=== PATIENT | female | born 1950 | race Asian ===

== ENCOUNTER → 2021-03-06 08:50 | Outpatient (CLI) | payer MEDICARE, BC, SELFPAY ==
--- NOTE | 2021-03-06 | DI.MRI.S_ITS ---
PROCEDURE: MR HIP RT WO CON INDICATIONS: Pain in right hip TECHNIQUE: Noncontrast coronal T1 spin echo and STIR through the bony pelvis. Coronal and axial T2 fast spin echo with fat saturation, sagittal T1 spin echo, and oblique axial T2 fast spin echo with fat saturation through the hip. COMPARISON: None. FINDINGS: Bones and joints: No fracture identified. Sacroiliac joints are unremarkable in signal intensity. There is lower lumbar spondylosis and facet arthropathy. Large joint effusion. No evidence of osteonecrosis. Severe lumbar spondylosis and facet arthropathy. There is partially visualized dextroscoliosis of the lumbar spine. Severe right hip joint degeneration with full-thickness cartilage loss and prominent subchondral cystic change and marrow edema. Tendons and ligaments: Mild gluteus medius and minimus insertional tendinopathy. Proximal iliotibial band intact. Diffuse mild iliopsoas tendinopathy. Age-indeterminate hamstring origin tendinopathy and partial tear. There is high-grade intrasubstance signal change and adjacent soft tissue edema involving the straight and reflected tends of the rectus femoris origin. This may include complete rupture of the straight head. Ligamentum teres appears intact where visualized. Labrum: Ill-defined circumferential labral degeneration. The alpha angle of the femur is within normal limits at less than 55 degrees. Soft tissues: Visualized muscles demonstrate normal bulk and internal signal. Quadratus femoris muscle normal. Proximal sciatic neurovascular bundle appears normal adjacent to the hamstring tendons. No free pelvic fluid. Bladder normal. Genitourinary structures and bowel loops appear normal where visualized. IMPRESSION: High-grade partial tear and tendinopathy involving the origin of the rectus femoris. There may be complete rupture of the straight head. Severe right hip joint degeneration with [id number] appearance. Prominent subchondral cystic changes and marrow edema in the acetabulum. Large joint effusion Ill-defined chronic circumferential labral degenerative tear/fraying. Age-indeterminate hamstring origin tendinopathy and partial tear. Diffuse mild iliopsoas tendinopathy. Mild hip abductor insertional tendinopathy. Dictated by: Wayne To M.D. on 03/06/2021 at 11:21 Approved by: Wayne To M.D. on 03/06/2021 at 11:26
== END ==
PROVIDERS: Family Provider Family Medicine; PCP Internal Medicine; Referring Provider Internal Medicine; Visit Provider Internal Medicine
DX: M25.551 Pain in right hip (principal); S76.011A Strain of muscle, fascia and tendon of right hip, initial encounter; M16.11 Unilateral primary osteoarthritis, right hip; M25.451 Effusion, right hip; S76.811A Strain of other specified muscles, fascia and tendons at thigh level, right thigh, initial encounter
CPT/HCPCS: 73721